=== PATIENT | male | born 1975 | race Caucasian/White ===

== ENCOUNTER 2016-10-15 11:40 | Emergency (ER) | payer SELFPAY ==
[~2016-10-15] VITALS: Ht 182.9 cm; Wt 82.0 kg
[~2016-10-15 11:40] MED LIST: ADDE30TA; TOPR50TA
--- NOTE | 2016-10-15 12:21 | PD ---
HPI Chief Complaint: CHEST PAIN Time Seen by Provider: 12:21 Travel History International Travel<30 days: No Contact w/Intl Traveler<30days: No History of Present Illness HPI 41-year old male with PMH of HTN and PTSD presents to the ED via EMS for evaluation of left sided chest pain, radiating to the midback, accompanied by SOB, nausea, vomiting. Pain onset at rest ~ 2 hours ago, described as pressure. Somewhat improved on presentation. Patient states he "drinks all day and all night." He states that he last consumed alcohol approximately 24 hours before onset of symptoms. He states that shortly after onset of symptoms he drank 3 beers an attempt to improve his chest pain. He endorses previous history of alcohol withdrawal seizures. Endorses abdominal pain which he attributes to several episodes of vomiting overnight. Denies fevers, chills, dysuria. Denies cardiac history or previous episodes of pancreatitis. Patient states that he lives in [place], [place]. He states that he wants to quit drinking. PFS Past Medical History ADD: Yes Hypertension: Yes Past Surgical History Genitourinary Surgery: Yes (CHILD HERNIA REPAIR) Social History Alcohol Use: Yes (4 BEERS WEEK) Tobacco Use: No Allergies-Medications (Allergen,Severity, Reaction): Uncoded Allergies: CODIENE (Allergy, Mild, 10/21/06) Reported Meds & Prescriptions Reported Meds & Active Scripts Active Chlordiazepoxide (Chlordiazepoxide HCl) 25 Mg Cap 25 Mg PO QID PRN Reported Ativan (Lorazepam) 0.5 Mg Tab 0.5 Mg PO DAILY PRN Metoprolol Tartrate 25 Mg Tab 25 Mg PO BID Lisinopril 5 Mg Tab 5 Mg PO DAILY Review of Systems Except as stated in HPI: all other systems reviewed are Neg Physical Exam Narrative GENERAL: Well-nourished, well-developed, alert, oriented, tremulous white male in no acute distress. SKIN: Focused skin assessment warm/dry. Multiple tattoos. HEAD: Normocephalic. EYES: No scleral icterus. Mild bilateral injection. No drainage. NECK: Supple, trachea midline. No JVD or lymphadenopathy. CARDIOVASCULAR: Regular rate and rhythm without murmurs, gallops, or rubs. 2+ DP and radial pulses bilaterally. RESPIRATORY: Breath sounds clear and equal bilaterally. No accessory muscle use. GASTROINTESTINAL: Abdomen soft, nondistended. Tender to palpation in the periumbilical region. Active bowel sounds. MUSCULOSKELETAL: No cyanosis, or edema. Patient is ambulatory and moves the extremities spontaneously. NEUROLOGICAL: Awake and alert. Cranial nerves II through XII intact. Motor and sensory grossly within normal limits. 5/5 muscle strength in all muscle groups. Normal speech. BACK: Nontender without obvious deformity. No CVA tenderness. Data Data Last Documented VS Vital Signs Date Time Temp Pulse Resp B/P Pulse Ox O2 Delivery O2 Flow Rate FiO2 10/15/16 17:21 78 18 141/71 98 10/15/16 15:00 Room Air 10/15/16 13:02 98.8 Orders Electrocardiogram (10/15/16 12:28) Ckmb (Isoenzyme) Profile (10/15/16 12:28) Complete Blood Count With Diff (10/15/16 12:28) Magnesium (Mg) (10/15/16 12:28) Prothrombin Time / Inr (Pt) (10/15/16 12:28) Act Partial Throm Time (Ptt) (10/15/16 12:28) Troponin I (10/15/16 12:28) Chest, Single Ap (10/15/16 12:28) Iv Access Insert/Monitor (10/15/16 12:28) Sodium Chloride 0.9% Flush (Ns Flush) (10/15/16 12:30) Lorazepam Inj (Ativan Inj) (10/15/16 12:30) Sodium Chlor 0.9% 1000 Ml Inj (Ns 1000 M (10/15/16 12:30) ^ Etoh Withdrawal Precautions (10/15/16 12:28) Alcohol (Ethanol) (10/15/16 12:28) Ondansetron Inj (Zofran Inj) (10/15/16 12:30) Lipase (10/15/16 13:04) Urinalysis - C+S If Indicated (10/15/16 13:04) Comprehensive Metabolic Panel (10/15/16 13:04) CKMB (10/15/16 13:05) CKMB% (10/15/16 13:05) Ckmb (Isoenzyme) Profile (10/15/16 14:59) Troponin I (10/15/16 14:59) CKMB (10/15/16 15:30) CKMB% (10/15/16 15:30) Sodium Chlor 0.9% 1000 Ml Inj (Ns 1000 M (10/15/16 17:00) Ondansetron Inj (Zofran Inj) (10/15/16 17:00) Labs Laboratory Tests Test 10/15/16 10/15/16 10/15/16 10/15/16 13:00 13:05 14:40 15:30 White Blood Count 7.1 TH/MM3 Red Blood Count 4.87 MIL/MM3 Hemoglobin 15.1 GM/DL Hematocrit 44.1 % Mean Corpuscular Volume 90.7 FL Mean Corpuscular Hemoglobin 31.1 PG Mean Corpuscular Hemoglobin 34.3 % Concent Red Cell Distribution Width 14.1 % Platelet Count 166 TH/MM3 Mean Platelet Volume 8.3 FL Neutrophils (%) (Auto) 69.4 % Lymphocytes (%) (Auto) 17.8 % Monocytes (%) (Auto) 12.4 % Eosinophils (%) (Auto) 0.1 % Basophils (%) (Auto) 0.3 % Neutrophils # (Auto) 4.9 TH/MM3 Lymphocytes # (Auto) 1.3 TH/MM3 Monocytes # (Auto) 0.9 TH/MM3 Eosinophils # (Auto) 0.0 TH/MM3 Basophils # (Auto) 0.0 TH/MM3 CBC Comment DIFF FINAL Differential Comment Sodium Level 136 MEQ/L Potassium Level 3.7 MEQ/L Chloride Level 100 MEQ/L Carbon Dioxide Level 26.0 MEQ/L Anion Gap 10 MEQ/L Blood Urea Nitrogen 5 MG/DL Creatinine 0.74 MG/DL Estimat Glomerular Filtration 118 ML/MIN Rate Random Glucose 78 MG/DL Calcium Level 8.7 MG/DL Magnesium Level 2.0 MG/DL Total Bilirubin 0.8 MG/DL Aspartate Amino Transf 65 U/L (AST/SGOT) Alanine Aminotransferase 42 U/L (ALT/SGPT) Alkaline Phosphatase 75 U/L Total Creatine Kinase 380 U/L 317 U/L Creatine Kinase MB 4.5 NG/ML 3.7 NG/ML Creatine Kinase MB % 1.2 % 1.2 % Troponin I LESS THAN 0.02 LESS THAN 0.02 NG/ML NG/ML Total Protein 7.4 GM/DL Albumin 3.8 GM/DL Lipase 219 U/L Ethyl Alcohol Level LESS THAN 3 MG/DL Prothrombin Time 11.4 SEC Prothromb Time International 1.0 RATIO Ratio Activated Partial 30.1 SEC Thromboplast Time Urine Color YELLOW Urine Turbidity CLEAR Urine pH 6.5 Urine Specific [place] 1.022 Urine Protein TRACE mg/dL Urine Glucose (UA) NEG mg/dL Urine Ketones 150 mg/dL Urine Occult Blood NEG Urine Nitrite NEG Urine Bilirubin NEG Urine Urobilinogen 2.0 MG/DL Urine Leukocyte Esterase NEG Urine RBC LESS THAN 1 /hpf Urine WBC LESS THAN 1 /hpf Urine Squamous Epithelial <1 /hpf Cells Urine Amorphous Sediment RARE Urine Mucus FEW /lpf Microscopic Urinalysis Comment CULT NOT INDICATED MDM Medical Decision Making Medical Screen Exam Complete: Yes Emergency Medical Condition: Yes Differential Diagnosis chest pain versus acute alcohol withdrawal versus pancreatitis versus electrolyte abnormality versus dehydration versus other Narrative Course 41-year old male with PMH of HTN and PTSD presents to the ED via EMS for evaluation of left sided chest pain, radiating to the midback, accompanied by SOB, nausea, vomiting. Onset at rest ~ 2 hours ago, described as pressure, somewhat improved on presentation. Patient endorses daily drinking 15 years. Last EtOH ~24 hours before onset of symptoms. Endorses drinking 3 beers this morning after onset of symptoms. Endorses history of withdrawal seizures. Endorses abdominal pain 2/2 episodic vomiting overnight. Denies fevers, chills , dysuria, cardiac history, previous episode of pancreatitis. Patient is visiting from [place], [place]. Vitals reviewed. Tachycardic, rate 114 on presentation. Physical exam reveals a slightly tremulous but A & O white male in no acute distress. Regular rate and rhythm without appreciable M/R/G. Chest CTAB. Mild periumbilical abdominal TTP. Otherwise unremarkable. IV was established. Patient was administered 1 L normal saline bolus, 4 mg Zofran, 2 mg Ativan IV. CIWA precautions ordered. CBC: WBC 7.1. Hemoglobin 15.1. CMP: Unremarkable M.0 Lipase: 219 ETOH: Less than 3 UA: no culture indicated Coags: INR 1.0 Cardiac enzymes: negative x 2 CXR: No acute cardiopulmonary disease per radiology read. EKG: Rate 107, sinus rhythm. MD interval 133, QRS 89, QTc 380. Normal axis. No ST elevations or depressions. Reviewed by Dr. Macedo. On recheck the patient is sleeping on the stretcher. He reports mild improvement of his symptoms. Vitals have improved. 2nd liter NS and dose of Zofran ordered. This is alcohol withdrawal. I discussed the importance of seeking medical help while attempting to detox from alcohol, especially given his history of withdrawal seizure. He was provided a short course of Librium 4 times a day when necessary. He was given a list of local outpatient resources for treatment of chronic alcoholism. He indicated understanding of the discharge instructions and was amenable to plan of care. He is stable and discharged home. Diagnosis Primary Impression: Alcohol withdrawal Qualified Code: F10.230 - Alcohol withdrawal, uncomplicated Referrals: [facility] (Out patient) Patient Instructions: Abuse of Alcohol (ED), Alcohol Withdrawal (ED), General Instructions Additional Instructions: Rest, hydrate. Take Librium as prescribed. Follow-up with the primary care provider. Seek outpatient treatment for your chronic alcoholism. Return to the ED for any urgent or emergent medical condition. Med/Other Pt SpecificInfo: Prescription(s) given Scripts Chlordiazepoxide 25 Mg Cap25 Mg PO QID PRN (Anxiety) #20 CAP Ref 0 Prov:Héctor Macedo MD 10/15/16 Disposition: DISCHARGE HOME Condition: Stable Blanca Kaur Oct 15, 2016 12:21
[2016-10-15] MEDS ORDERED: SODIUM CHLOR 0.9% 1000 ML INJ 1,000 ML IV ONE ×2 (12:30→17:00)
[2016-10-15] MEDS ORDERED: ONDANSETRON HCL 4 MG/2 ML VIAL IV PUSH ONE ×2 (12:30→17:00)
[2016-10-15] MEDS ORDERED: SODIUM CHLORIDE 0.9% FLUSH 10 ML FLUSH IVF PRN (12:30)
[2016-10-15] MEDS ORDERED: LORazepam 2 MG/ML VIAL IV PUSH ONE (12:30)
[2016-10-15 13:02] VITALS: BP 158/109; PULSE 114; RESP 24; TEMP 98.8; O2SAT 99
[2016-10-15] MEDS ORDERED: LISI-519 PO (13:14)
[2016-10-15] MEDS ORDERED: LORA-392 PO (13:14)
[2016-10-15] MEDS ORDERED: METO25TA3 PO (13:14)
[2016-10-15 13:18] LABS: AUTOMATED NEUTROPHIL # 4.9 TH/MM3 (1.8-7.7); BASOPHIL % 0.3 % (0.0-2.0); EOSINOPHIL % 0.1 % (0.0-4.0); HEMATOCRIT 44.1 % (39.0-51.0); HEMO FLAGS DIFF FINAL; LYMPH % 17.8 % (9.0-44.0); LYMPHOCYTE # 1.3 TH/MM3 (1.0-4.8); MEAN CELL VOLUME 90.7 FL (80.0-100.0); MEAN CORPUSCULAR HEMOGLOBIN 31.1 PG (27.0-34.0); MEAN CORPUSCULAR HGB CONC 34.3 % (32.0-36.0); MONO % 12.4 % (0.0-8.0); NEUT % 69.4 % (16.0-70.0); PLATELET COUNT 166 TH/MM3 (150-450); RED BLOOD COUNT 4.87 MIL/MM3 (4.50-5.90); RED CELL DISTRIBUTION WIDTH 14.1 % (11.6-17.2); WHITE BLOOD COUNT 7.1 TH/MM3 (4.0-11.0)
--- NOTE | 2016-10-15 13:40 | RADRPT ---
EXAM DATE/TIME: 10/15/2016 12:50 [facility] COMPARISON: No previous studies available for comparison. INDICATIONS : Chest pain. Left shoulder numbness/tingling. MEDICAL HISTORY : None. SURGICAL HISTORY : None. ENCOUNTER: Initial ACUITY: 1 day PAIN SCORE: 5/10 LOCATION: Left chest FINDINGS: A single view of the chest demonstrates the lungs to be symmetrically aerated without evidence of mas s, infiltrate or effusion. The cardiomediastinal contours are unremarkable. Osseous structures are intact. CONCLUSION: 1. No acute cardiopulmonary disease. Meek Juan MD on October 15, 2016 at 13:39 Board Certified Radiologist. This report was verified electronically.
[2016-10-15 13:42] LABS: CREATINE KINASE 380 U/L (39-308)
[2016-10-15 13:46] LABS: ALKALINE PHOSPHATASE 75 U/L (45-117); TOTAL BILIRUBIN ADULT 0.8 MG/DL (0.2-1.0)
[2016-10-15 13:47] LABS: ALT (GPT) 42 U/L (12-78); ANION GAP 10 MEQ/L (5-15); AST (GOT) 65 U/L (15-37); BLOOD UREA NITROGEN 5 MG/DL (7-18); CHLORIDE 100 MEQ/L (98-107); GLOMERULAR FILTRATION RATE 118 ML/MIN (>89); SODIUM (NA) 136 MEQ/L (136-145)
[2016-10-15 13:48] LABS: POTASSIUM 3.7 MEQ/L (3.5-5.1)
[2016-10-15 14:08] LABS: CKMB 4.5 NG/ML (0.5-3.6)
[2016-10-15 15:00] VITALS: BP 159/73; PULSE 89; RESP 20; O2SAT 98
[2016-10-15 15:15] LABS: BLOOD, URINE NEG (NEG); COMMENT (UR) CULT NOT INDICATED; CULTURE IF INDICATED CULT NOT INDICATED; GLUCOSE,URINE NEG (NEG); KETONE, URINE 150 mg/dL (NEG); MUCUS URINE FEW /lpf (OCC); NITRITE,URINE NEG (NEG); PH, URINE 6.5 (5.0-8.5); SQUAMOUS EPITHELIAL CELL URINE <1 /hpf (0-5); URINE COLOR YELLOW (YELLW/STRAW)
[2016-10-15 15:23] LABS: APTT (PATIENT) 30.1 SEC (24.3-30.1); PROTHROMBIN TIME - PATIENT 11.4 SEC (9.8-11.6)
[2016-10-15 16:27] LABS: CREATINE KINASE 317 U/L (39-308)
[2016-10-15 16:39] LABS: CKMB 3.7 NG/ML (0.5-3.6)
[2016-10-15] MEDS ORDERED: CHLO25CA2 PO (16:48)
[2016-10-15 17:21] VITALS: BP 141/71
--- NOTE | 2016-10-16 20:38 | EKG ---
Date Performed: 10/15/2016 Time Performed: 12:02:36 PTAGE: 41 years EKG: SINUS TACHYCARDIA ABNORMAL RHYTHM ECG NO PREVIOUS TRACING DOCTOR: Keo Ayala Interpretating Date/Time 10/16/2016 20:37:26
== END 2016-10-15 18:00 | disposition home or self-care (01) ==
LOC: NEDAMB 11:40
DX: F10.230 Alcohol dependence with withdrawal, uncomplicated (principal); R00.0 Tachycardia, unspecified; Y90.0 Blood alcohol level of less than 20 mg/100 ml
CPT/HCPCS: 71010; 80053; 80307; 81001; 82550; 82552; 83690; 83735; 84484; 85025; 85610; 85730; 93005; 96361; 96374; 96375; 96376; 99285; J2060; J2405; J7030